=== PATIENT | male | born 1985 | race Caucasian/White ===

== ENCOUNTER 2018-12-02 06:53 | Emergency (ER) | payer BC ==
[~2018-12-02] VITALS: Ht 185.4 cm; Wt 83.9 kg
--- NOTE | 2018-12-02 07:03 | NUR ---
Patient to ER bed 8 to gown for evaluation. Side rails up. Report given to Dieter MERCHANT.
[2018-12-02 07:05] VITALS: BP_SYST 138
--- NOTE | 2018-12-02 07:22 | NUR ---
Pt complaining of right heel pain 8/10 x 1 week which increases with pressure, stated he does not know the cause of pain but that he started working out at a gym recently. Pt demonstrated limited movement of 4 smaller toes, rash present on back of heel, no wounds, swelling, redness or indication of trauma noted. Hx of Type1 DM w/insulin pump, pt stated his BS this AM was 171. Additional Hx of hypothyroidism. Pt stated he is currently in revovery and refuses any narcotics. Pt AAO, speaks Divehi and is cooperative.
--- NOTE | 2018-12-02 07:25 | NUR ---
ER Dr. Stewart at bedside examining patient.
[2018-12-02] MEDS ORDERED: LIDOCAINE/EPI 2% 1:100000 20 ML VIAL INJ ONE (08:00)
[2018-12-02] MEDS ORDERED: KETOROLAC TROMETHAMINE 60 MG/2 ML VIAL IM ONE (08:00)
[2018-12-02] MEDS ORDERED: SULFAMETHOXAZOLE/TRIMETHOPR DS 1 TABLET PO ONE (08:00)
[2018-12-02] MEDS ORDERED: ceFAZolin SODIUM 1 GM VIAL IM ONE (08:00)
[2018-12-02 08:57] VITALS: BP_SYST 138
--- NOTE | 2018-12-02 08:57 | NUR ---
Patient given written and verbal discharge instructions and verbalizes understanding. ER MD discussed with patient the results and treatment provided. Patient in stable condition. ID arm band removed. Rx of bactrim, Motrin, Humolog, Kefflex given. Patient educated on pain management and to follow up with PMD. Pain Scale 5/10. Opportunity for questions provided and answered. Medication side effect fact sheet provided.
== END 2018-12-02 08:57 | disposition home or self-care (01) ==
LOC: SED 06:53
DX: L03.116 Cellulitis of left lower limb (principal)
CPT/HCPCS: 73630; 82962; 96372; 99283; J0690; J1885

== ENCOUNTER 2018-12-09 07:53 | Emergency (ER) | payer BC ==
[~2018-12-09] VITALS: Ht 185.4 cm; Wt 81.6 kg
[2018-12-09 08:05] VITALS: BP_SYST 159
--- NOTE | 2018-12-09 08:11 | NUR ---
Patient to ER bed 5 to gown for evaluation. Side rails up. Report given to Bon MERCHANT.
--- NOTE | 2018-12-09 08:15 | NUR ---
Patient comes to ER from home, AOx4, verbal and ambulatory. Patient has complaint of pain to LT foot arch/heel area. States that he hurt it while working out on [place]. Says is currently on ABX and Antifungal for topical foot infection on LT foot which started 2 weeks ago. Active ROM on affected limb, pulses palpable and regular. No other complaint or injury at this time.
--- NOTE | 2018-12-09 08:20 | NUR ---
DR HERNANDEZ at bedside for ER evaluation
[2018-12-09] MEDS ORDERED: KETOROLAC TROMETHAMINE 60 MG/2 ML VIAL IM ONE (08:30)
--- NOTE | 2018-12-09 10:05 | NUR ---
Patient given written and verbal discharge instructions and verbalizes understanding. ER MD discussed with patient the results and treatment provided. Patient in stable condition. ID arm band removed. Rx of Ultran and Motrin given. Patient educated on pain management, tendonitis, ankle sprain, use of crutches and ankle brace and to follow up with PMD. Pain Scale 1/10. Opportunity for questions provided and answered. Medication side effect fact sheet provided.
[2018-12-09 10:06] VITALS: BP_SYST 142
== END 2018-12-09 10:05 | disposition home or self-care (01) ==
LOC: SED 07:53
DX: S93.402A Sprain of unspecified ligament of left ankle, initial encounter (principal); M76.62 Achilles tendinitis, left leg; E11.9 Type 2 diabetes mellitus without complications; I10 Essential (primary) hypertension; X58.XXXA Exposure to other specified factors, initial encounter; Y93.89 Activity, other specified; Y92.89 Other specified places as the place of occurrence of the external cause; Y99.8 Other external cause status
CPT/HCPCS: 73600; 96372; 99283; J1885

== ENCOUNTER 2019-05-09 09:42 | Emergency (ER) | payer BC ==
[~2019-05-09] VITALS: Ht 185.4 cm; Wt 87.5 kg
[2019-05-09 10:14] VITALS: BP_SYST 152
--- NOTE | 2019-05-09 10:21 | NUR ---
Patient to ER bed 1 to gown for evaluation. Side rails up. Report given to Rudy MERCHANT.
[2019-05-09] MEDS ORDERED: NACL 0.9% 1,000 ML IV ONE (10:30)
--- NOTE | 2019-05-09 10:30 | NUR ---
Patient presented to ER with C/O feeling weak, dehydrated, diarrhea x 2 days. Patient A&Ox4, afebrile, ambulatory to ER. Patient states he has had symptoms intermittent x1 month, denies pain, nausea, denies emesis, diarrhea. Patient states chloride has been low, A1C has been 10.6 in past month. Patient states health hx includes Diabetes x1, internal insulin pump
[2019-05-09 10:57] LABS: BASOPHILS # (AUTO) 0.1 K/uL (0.0-0.2); BASOPHILS % (AUTO) 1.1 % (0.0-2.0); EOSINOPHILS # (AUTO) 0.2 K/uL (0.0-0.4); HEMATOCRIT 42.6 % (36-54); HEMOGLOBIN 14.5 g/dL (14.0-18.0); LYMPHOCYTES # (AUTO) 1.5 K/uL (1.0-5.5); LYMPHOCYTES % (AUTO) 20.3 % (20.5-51.5); MEAN CORPUSCULAR HEMOGLOBIN 30 pg (27-31); MEAN CORPUSCULAR HGB CONC 34 % (32-36); MEAN CORPUSCULAR VOLUME 88 fL (79.0-98.0); MONOCYTES # (AUTO) 0.5 K/uL (0.0-1.0); MONOCYTES % (AUTO) 7.2 % (1.7-9.3); NEUTROPHILS # (AUTO) 5.2 K/uL (1.8-7.7); NEUTROPHILS % (AUTO) 69.4 % (40.0-70.0); PLATELET COUNT (AUTO) 343 K/uL (130-430); RED BLOOD CELL COUNT(AUTO) 4.85 MIL/uL (4.2-6.2); RED CELL DISTRIBUTION WIDTH 12.6 % (9.0-15.0); WHITE BLOOD COUNT (AUTO) 7.4 K/uL (4.8-10.8)
[2019-05-09 11:12] LABS: CALCIUM 9.5 mg/dL (8.4-11.0); CREATININE 0.93 mg/dL (0.55-1.30); POTASSIUM 3.8 mmol/L (3.5-5.1)
--- NOTE | 2019-05-09 11:15 | NUR ---
ER Dr. Wiseman at bedside examining patient.
[2019-05-09 11:17] LABS: ALBUMIN 4.4 g/dL (3.4-4.8); TOTAL BILIRUBIN 0.4 mg/dL (0.0-1.0)
[2019-05-09] MEDS ORDERED: ONDANSETRON HCL 4 MG/2 ML VIAL IVP ONE (11:45)
--- NOTE | 2019-05-09 12:25 | NUR ---
REPORT TO ZEB MERCHANT
--- NOTE | 2019-05-09 12:56 | NUR ---
Patient given written and verbal discharge instructions and verbalizes understanding. ER MD Picketterdiscussed with patient the results and treatment provided. Patient in stable condition. ID arm band removed. IV catheter removed intact and dressing applied, no active bleeding. Rx of Zofran, Mineral Oil given. Patient educated on pain management and to follow up with PMD. Pain Scale 0.Opportunity for questions provided and answered. Medication side effect fact sheet provided.
[2019-05-09 13:43] VITALS: BP_SYST 143
== END 2019-05-09 13:43 | disposition home or self-care (01) ==
LOC: SED 09:42
DX: R10.9 Unspecified abdominal pain (principal); R19.7 Diarrhea, unspecified; E11.9 Type 2 diabetes mellitus without complications; I10 Essential (primary) hypertension
CPT/HCPCS: 36415; 74021; 80053; 82962; 85025; 96361; 96374; 99284; J2405; J7030; 99283